=== PATIENT | female | born 1970 | race Caucasian/White ===

== ENCOUNTER 2017-08-14 16:58 | Emergency (ER) | payer OTHER ==
[2017-08-14] MEDS ORDERED: Sodium Chloride 0.9% 1000 ML 1,000 ML IV SCH (18:30)
--- NOTE | 2017-08-14 18:45 | ERPHSYRPT ---
- History of Present Illness Time Seen by Provider: 08/14/17 18:05 Source: patient Exam Limitations: clinical condition Patient Subjective Stated Complaint: pt here for osteomyltis of t3-t4 and was treated at [facility] and got iv vanco, and left that hospital over care and then she went to [facility] today and was given vanco today.she states she has mrsa in blood that caused this problem Triage Nursing Assessment: pt alert, resp easy, skin w/d/p. walked in, Physician History: PATIENT WITH A HISTORY OF MID BACK PAIN X 2-3 WEEKS, EVALUATED AT [facility] IN [facility] ON 08/06/2017 WITH POSITIVE BLOOD CULTURES FOR MRSA, MRI OF THORACIC SPINE CONSISTENT WITH OSTEOMYELITIS OF THE T3-T4 LEVEL. HOSPITALIZE AND TREATED WITH INTRAVENOUS VANCOMYCIN. PATIENT HAD PICC LINE REMOVED AND SIGNED OUT AMA ON 08/09/2017. HAS A HISTORY OF ANTONELLA THYROIDITIS , AND INTRAVENOUS METHAMPETAMINES ABUSE. DENIES FEVER OR CHILLS OR NIGHT SWEATS. EVALUATED AT [facility] TODAY IN EMERGENCY AT 1230 AND SIGNED OUT AMA AFTER RECEIVING 30 MINUTES OF INTRAVENOUS VANCOMYCIN. Timing/Duration: week(s) Method of Injury: other (DENIES INJURY) Quality: burning, throbbing Back Pain Location: T-spine Severity of Pain-Max: moderate Severity of Pain-Current: moderate Modifying Factors: Improves With: movement Associated Symptoms: muscle spasms Previous symptoms: same symptoms as today Allergies/Adverse Reactions: levothyroxine sodium [From Synthroid] Allergy (Verified 08/14/17 17:45) Home Medications: Buspirone HCl [Buspar] 10 mg TID 08/14/17 [History] Spironolactone 25 mg DAILY 08/14/17 [History] Thyroid,Pork [[place] Thyroid] 120 mg DAILY 08/14/17 [History] Hx Influenza Vaccination/Date Given: Yes Hx Pneumococcal Vaccination/Date Given: Yes Immunizations Up to Date: Yes - Past Medical History Pertinent Past Medical History: Yes Endocrine Medical History: Hypothyroidism Other Medical History: mrsa ,polycystic - Past Surgical History Past Surgical History: Yes Female Surgical History: Dilation & Curettage - Social History Smoking Status: Former smoker Exposure to second hand smoke: No Drug Use: none Patient Lives Alone: No - Female History Hx Last Menstrual Period: 2 weeks ago Hx Now: No - Nursing Vital Signs Nursing Vital Signs: Initial Vital Signs Temperature 97.0 F 08/14/17 17:34 Pulse Rate 70 08/14/17 17:34 Respiratory Rate 16 08/14/17 17:34 Blood Pressure 123/69 08/14/17 17:34 O2 Sat by Pulse Oximetry 97 08/14/17 17:34 Pain Scale Pain Intensity [Back] 8 Pain Intensity 8 - Physical Exam SpO2: 97 Oxygen Delivery: Room Air Ordered Tests: Active Orders 24 hr Category Date Time Status Clean Catch Urine Specimen STAT Care 08/14/17 18:25 Active CBC W DIFF Stat Lab 08/14/17 18:58 Completed CMP Stat Lab 08/14/17 18:58 Completed MAGNESIUM Stat Lab 08/14/17 18:58 Completed Manual Differential NC Stat Lab 08/14/17 18:58 Completed UA Stat Lab 08/14/17 18:26 Uncollected Urine Triage Profile Stat Lab 08/14/17 19:46 Completed Medication Summary Generic Name Dose Route Start Last Admin Trade Name Freq PRN Reason Stop Dose Admin Sodium Chloride 1,000 mls @ 200 mls/hr 08/14/17 18:30 08/14/17 19:48 Sodium Chloride 0.9% 1000 Ml IV 09/13/17 18:29 200 mls/hr .Q5H MELBA Administration Discontinued Medications Generic Name Dose Route Start Last Admin Trade Name Freq PRN Reason Stop Dose Admin Hydrocodone Bitart/Acetaminophen 2 tab 08/14/17 18:49 08/14/17 19:45 [place] 5/325 Mg PO 08/14/17 18:50 2 tab STAT ONE Administration Hydrocodone Bitart/Acetaminophen Confirm 08/14/17 19:40 [place] 5/325 Mg Administered 08/14/17 19:41 Dose 2 tab .ROUTE .STK-MED ONE Vancomycin HCl 250 mls @ 167 mls/hr 08/14/17 18:49 08/14/17 19:48 Vancomycin 1gm/ Ns 250ml IV 08/14/17 20:18 167 mls/hr STAT ONE Administration Vancomycin HCl Confirm 08/14/17 19:41 Vancomycin 1gm/ Ns 250ml Administered 08/14/17 19:42 Dose 250 mls @ ud IV .STK-MED ONE Lab/Rad Data: Laboratory Result Diagrams 08/14/17 18:58 08/14/17 18:58 Laboratory Results 08/14/17 08/14/17 08/14/17 Range/Units 19:46 18:58 18:58 WBC (4.0-10.5) K/mm3 RBC (4.1-5.4) M/mm3 Hgb (12.0-16.0) gm/dl Hct (35-47) % MCV (78-100) fl MCH (26-32) pg MCHC (32-36) g/dl RDW (11.5-14.0) % Plt Count (150-450) K/mm3 MPV (6-9.5) fl Absolute Granulocytes (1.4-6.9) Sodium 140 (137-145) mmol/L Potassium 4.3 (3.5-5.1) mmol/L Chloride 100 (98-107) mmol/L Carbon Dioxide 29 (22-30) mmol/L Anion Gap 15.2 H (5-15) MEQ/L BUN 12 (7-17) mg/dL Creatinine 0.73 (0.52-1.04) mg/dL Estimated GFR > 60.0 ML/MIN Glucose 123 H (74-106) mg/dL Calcium 10.5 H (8.4-10.2) mg/dL Magnesium 2.1 (1.6-2.3) mg/dL Total Bilirubin 0.20 (0.2-1.3) mg/dL AST 13 L (14-36) U/L ALT 20 (0-35) U/L Alkaline Phosphatase 111 (38-126) U/L Serum Total Protein 8.1 (6.3-8.2) g/dL Albumin 4.0 (3.5-5.0) g/dL Urine Opiates Level POSITIVE (NEGATIVE) Ur Methadone NEGATIVE (NEGATIVE) Urine Barbiturates NEGATIVE (NEGATIVE) Ur Phencyclidine (PCP) NEGATIVE (NEGATIVE) Urine Amphetamine NEGATIVE (NEGATIVE) U Benzodiazepine Level NEGATIVE (NEGATIVE) Urine Cocaine NEGATIVE (NEGATIVE) Urine Marijuana (THC) POSITIVE (NEGATIVE) 08/14/17 Range/Units 18:58 WBC 12.9 H (4.0-10.5) K/mm3 RBC 4.82 (4.1-5.4) M/mm3 Hgb 14.3 (12.0-16.0) gm/dl Hct 43.2 (35-47) % MCV 89.6 (78-100) fl MCH 29.7 (26-32) pg MCHC 33.1 (32-36) g/dl RDW 14.9 H (11.5-14.0) % Plt Count 526 H (150-450) K/mm3 MPV 8.3 (6-9.5) fl Absolute Granulocytes 8.90 H (1.4-6.9) Sodium (137-145) mmol/L Potassium (3.5-5.1) mmol/L Chloride (98-107) mmol/L Carbon Dioxide (22-30) mmol/L Anion Gap (5-15) MEQ/L BUN (7-17) mg/dL Creatinine (0.52-1.04) mg/dL Estimated GFR ML/MIN Glucose (74-106) mg/dL Calcium (8.4-10.2) mg/dL Magnesium (1.6-2.3) mg/dL Total Bilirubin (0.2-1.3) mg/dL AST (14-36) U/L ALT (0-35) U/L Alkaline Phosphatase (38-126) U/L Serum Total Protein (6.3-8.2) g/dL Albumin (3.5-5.0) g/dL Urine Opiates Level (NEGATIVE) Ur Methadone (NEGATIVE) Urine Barbiturates (NEGATIVE) Ur Phencyclidine (PCP) (NEGATIVE) Urine Amphetamine (NEGATIVE) U Benzodiazepine Level (NEGATIVE) Urine Cocaine (NEGATIVE) Urine Marijuana (THC) (NEGATIVE) - Progress Progress Note: 08/14/17 19:29 IV NORMAL SALINE 200ML/HR, VANCOMYCIN 1G IVPB Discussed with : Other (DISCUSSED WITH DR LEVI [id number] FOR TRANSFER VIA [facility]) - Departure Time of Disposition: 20:40 Departure Disposition: Transfer Clinical Impression: OSTEOMYELITIS THORACIC SPINE T-3 TO T-4 Condition: Stable Critical Care Time: No Referrals: DOCTOR,NO FAMILY [Primary Care Provider] -
[2017-08-14] MEDS ORDERED: Vancomycin 1GM/ Ns 250ML*** 250 ML IV ONE ×2 (18:49→19:41)
[2017-08-14] MEDS ORDERED: NORCO 5/325 MG PO ONE (18:49)
[2017-08-14 19:02] LABS: Hematocrit 43.2 % (35-47); Hemoglobin 14.3 gm/dl (12.0-16.0); Mean Cell Volume 89.6 fl (78-100); Mean Corpuscular Hemoglobin 29.7 pg (26-32); Mean Corpuscular Hgb Concent. 33.1 g/dl (32-36); Mean Platelet Volume 8.3 fl (6-9.5); Platelet Count 526 K/mm3 (150-450); Red Blood Count 4.82 M/mm3 (4.1-5.4); Red Cell Distribution Width 14.9 % (11.5-14.0); White Blood Count 12.9 K/mm3 (4.0-10.5)
[2017-08-14 19:19] LABS: ALKALINE PHOSPHATASE 111 U/L (38-126); ANION GAP 15.2 MEQ/L (5-15); BLOOD UREA NITROGEN 12 mg/dL (7-17); CHLORIDE 100 mmol/L (98-107); Calcium 10.5 mg/dL (8.4-10.2); Carbon Dioxide 29 mmol/L (22-30); Creatinine 1 0.73 mg/dL (0.52-1.04); Glucose 123 mg/dL (74-106); Potassium 4.3 mmol/L (3.5-5.1); SGOT/AST 13 U/L (14-36); SGPT/ALT 20 U/L (0-35); SODIUM 140 mmol/L (137-145); Total Protein 8.1 g/dL (6.3-8.2)
[2017-08-14] MEDS ORDERED: NORCO 5/325 MG ONE (19:40)
[2017-08-14] MEDS ORDERED: Sodium Chloride 0.9% 1000 ML 1,000 ML ONE (19:40)
[2017-08-14 20:05] LABS: Amphetamine,Urine NEGATIVE (NEGATIVE); Barbiturate,Urine NEGATIVE (NEGATIVE); Benzodiazepine,Urine NEGATIVE (NEGATIVE); Cocaine,Urine NEGATIVE (NEGATIVE); Methadone,Urine NEGATIVE (NEGATIVE); Opiate,Urine POSITIVE (NEGATIVE); PCP,Urine NEGATIVE (NEGATIVE); THC,Urine POSITIVE (NEGATIVE)
[2017-08-14 20:36] VITALS: BP 137/92; PULSE 88
[2017-08-14 20:49] VITALS: O2SAT 97
[2017-08-15 00:48] LABS: Basophil 1 % (0.0-1.0); Eosinophil 2 % (0.00-3.0); Lymphocytes 23 % (24-44); Monocyte 10 % (0.0-12.0); Neutrophils 64 % (36.0-66.0); Total Cells Counted 100
[2017-08-15 00:49] LABS: Platelet Estimate INCREASED (NORMAL)
== END 2017-08-14 20:35 | disposition short-term general hospital (02) ==
LOC: ED 16:58
DX: M46.24 Osteomyelitis of vertebra, thoracic region (principal); Z79.899 Other long term (current) drug therapy
CPT/HCPCS: 36415; 80053; 80307; 83735; 85025; 96360; 96361; 96365; 96367; 99284; J3370; A9270-GY